=== PATIENT | female | born 1945 | race Hispanic/Latino ===

== ENCOUNTER 2018-08-12 12:22 | Emergency (ER) | payer MEDICARE ==
[2018-08-12 12:23] VITALS: BMI 26.5
[2018-08-12 12:33] VITALS: TEMP 98.7
[2018-08-12] MEDS ORDERED: Naproxen 550 mg Tab PO STA (13:31)
--- NOTE | 2018-08-12 13:37 | C.PDOC ---
History Of Present Illness 72 y/o female,w/PMhx of arthritis s/p arthroscopic surgery in 2008, presents to the ER complaining of pain in the right buttock radiating down to the right knee for the past 2-3 weeks. Patient states that the she has been taking Aspirin with mild relief. However, she stopped taking it because she did not want to take it daily. She admits to having increased urinary frequency. Denies having fever,chills, CP,SOB, nausea, vomiting, recent travel and sedentary lifestyle. Time Seen by Provider: 08/12/18 13:05 Chief Complaint (Nursing): Back Pain History Per: Patient History/Exam Limitations: no limitations Onset/Duration Of Symptoms: Days Current Symptoms Are (Timing): Still Present Severity: Moderate Past Medical History Reviewed: Historical Data, Nursing Documentation, Vital Signs Vital Signs: Last Vital Signs Temp 98.7 F 08/12/18 12:31 Pulse 79 08/12/18 12:31 Resp 16 08/12/18 12:31 BP 177/80 H 08/12/18 12:31 Pulse Ox 99 08/12/18 12:31 - Medical History PMH: Arthritis (shoulders), HTN Denies: Chronic Kidney Disease Other Surgeries: Hx of surgeries Family History: States: No Known Family Hx - Social History Hx Alcohol Use: No Hx Substance Use: No - Immunization History Hx Tetanus Toxoid Vaccination: No Hx Influenza Vaccination: No Hx Pneumococcal Vaccination: No Review Of Systems Constitutional: Negative for: Fever, Chills Cardiovascular: Negative for: Chest Pain Respiratory: Negative for: Shortness of Breath Gastrointestinal: Negative for: Nausea, Vomiting, Abdominal Pain Musculoskeletal: Positive for: Other (right buttock pain radiating to knee). Negative for: Neck Pain Skin: Negative for: Rash Neurological: Negative for: Headache, Dizziness Physical Exam - Physical Exam Appears: Non-toxic, No Acute Distress Skin: Normal Color, Warm, Dry Head: Atraumatic, Normacephalic Eye(s): bilateral: Normal Inspection Nose: Normal Oral Mucosa: Moist Neck: Supple Chest: Symmetrical Cardiovascular: Rhythm Regular Respiratory: Normal Breath Sounds, No Rales, No Rhonchi, No Wheezing Extremity: Normal ROM, Tenderness (tenderness to palpation on right side sacrum), Capillary Refill (< 2 seconds), No Swelling Extremity: Bilateral: Atraumatic, No Pedal Edema, Normal Color And Temperature, Normal ROM Pulses: Left Femoral: Normal, Right Femoral: Normal, Left Dorsalis Pedis: Normal, Right Dorsalis Pedis: Normal Neurological/Psych: Oriented x3, Normal Speech, Normal Motor, Normal Sensation Gait: Steady ED Course And Treatment O2 Sat by Pulse Oximetry: 99 (RA) Pulse Ox Interpretation: Normal Medical Decision Making Medical Decision Making: Plan: --Naproxen PO Disposition Counseled Patient/Family Regarding: Diagnosis, Need For Followup, Rx Given - Disposition Referrals: Chepe Sifuentes MD [Medical Doctor] - Rosana Hahn MD [Staff Provider] - Disposition: HOME/ ROUTINE Disposition Time: 14:08 Condition: STABLE Additional Instructions: Continue Naproxen twice a day Apply Lidocaine patches to the area Icy/ Hot massages Follow up with Ortho in 1-2 days Return to ED if symptoms worsen Prescriptions: Naproxen [Naprosyn] 500 mg PO BID #30 tablet Instructions: Sciatica (DC), Sacroiliac Joint Pain (DC), Sciatica Exercises, Knee Pain (DC) Forms: [employer] ([place]) - Clinical Impression Clinical Impression: Sciatica, Sacral back pain, Knee pain - PA / CRAPS MANAGER / Resident Statement MD/DO has reviewed & agrees with the documentation as recorded. - Scribe Statement The provider has reviewed the documentation as recorded by the Cindyibe Salvador Coker Provider Attestation All medical record entries made by the Cindyibe were at my direction and personally dictated by me. I have reviewed the chart and agree that the record accurately reflects my personal performance of the history, physical exam, medical decision making, and the department course for this patient. I have also personally directed, reviewed, and agree with the discharge instructions and disposition.
[2018-08-12] MEDS ORDERED: Naproxen 550 mg Tab PO ONE (13:39)
[2018-08-12 13:50] LABS: SQUAMOUS EPITHIAL 1 /hpf (0-5); URINE BILIRUBIN NEGATIVE (NEGATIVE); URINE BLOOD NEGATIVE (NEGATIVE); URINE CLARITY Clear (Clear); URINE COLOR Yellow (YELLOW); URINE GLUCOSE (UA) NORMAL (Normal); URINE LEUKOCYTE ESTERASE NEG Leu/uL (Negative); URINE PROTEIN NEGATIVE (NEGATIVE); URINE UROBILINOGEN NORMAL mg/dL (0.2-1.0)
[2018-08-12 14:11] VITALS: BP 158/71; PULSE 65; RESP 20
[2018-08-12 14:12] VITALS: O2SAT 99
== END 2018-08-12 14:16 | disposition home or self-care (01) ==
LOC: C.ER 12:22
DX: M54.30 Sciatica, unspecified side (principal); M25.561 Pain in right knee; M53.3 Sacrococcygeal disorders, not elsewhere classified